=== PATIENT | female | born 1990 | race Caucasian/White ===

== ENCOUNTER 2019-10-10 10:39 | Inpatient (IN) ==
[2019-10-10] MEDS ORDERED: OXYTOCIN 30 UNITS/500 ML BAG IV PRN ×2 (11:17→12:23)
--- NOTE | 2019-10-10 11:17 | History & Physical Report ---
Date of Service October 10, 2019 Assessment & Plan (1) Gestational hypertension: admitted to the L&D floor for induction of labor at 37w2d with Gestational HTN. 1) Induction of Labor - will start pitocin to augment contractions and labor progression - cervical checks and rupture of membranes if necessary during progression of labor - supportive care - NPO 2) Gestational HTN - BP 160/100 in office with repeat 140/82 10 minutes later (10/07) - BP today 132/92 in office, 143/88 on floor - UA to check for protein, ketones - CMP, CBC to check for liver and kidney function, anemia and platlet count - monitor reflexes FEN/GI: lactated ringers with pitocin titration Diet: NPO DVT ppx: none Code status: Full Code Dispo: L&D admit (2) : (3) History of herpes genitalis: (4) Supervision of normal intrauterine in primigravida: History of Present Illness Primary Care Provider: Lisa Arzate MD 37w2d confirmed LMP. Sent here for induction from the office for gestational HTN. Prior to elevated BP at the last few OB appointments, no complications with this . Has been attending OB appointments regularly. Currently vitamin and valtrex prophylaxis for hx of HSV. Last outbreak was in mid 2nd trimester. Contractions: none. Fluid or Blood loss: none Movement: active Labs Blood type: O+ Antibody screen: negative H.0 Hct:36.4 Wbc:10.97 Plt:[id number] Rubella: immune VDRL/RPR: nonreactive Gonorrhea: not detected Chlamydia: not detected GBS: negative Glucose tolerance x2: negative Allergies Allergy/AdvReac Type Severity Reaction Status Date / Time No Known Drug Allergies Allergy none Verified 10/10/19 10:57 Home Medications Home Medications Medication Instructions Recorded Confirmed Type PNV cmb#95-ferrous fumarate-FA 1 tab PO DAILY 10/10/19 10/10/19 History [] valacyclovir [Valtrex] 500 mg PO DAILY 10/10/19 10/10/19 History Patient History Social History (Updated 05/21/19 @ 12:46 by Arlyn Culver) Preferred Language: Libyan Urgent Care Technician Required: No Beliefs That Will Affect Care: None marital status: Current Living Situation: Spouse Other Information That Helps Us Care for You: No Feels Safe at Home: Yes Safety Concerns: Feels Safe At This Time Smoking Status: Never smoker Hx Alcohol Use: No Hx Substance Use: No OB History First ended in spontaneous miscarriage at 6-8 weeks. [employer] History negative pap 03/28/19 Review of Systems no fever, no chills and no fatigue no cough, no dyspnea and no wheezing no chest pain, no edema and no calf pain no abdominal pain, no nausea, no vomiting, no cramping, no constipation and no diarrhea/loose stools no dysuria and no difficulty urinating no back pain Physical Exam Constitutional: well developed and well nourished Respiratory: normal respiratory effort; no respiratory distress, no labored breathing and no cough Auscultation: no diminished lung sounds, no crackles, no rales, no rhonchi and no wheezes Cardiovascular: Rate/Rhythm: regular rate and regular rhythm Extremities: normal capillary refill; no calf tenderness and no pedal edema Gastrointestinal (Abdomen): Inspection/Auscultation: + abdomen distended and normal bowel sounds Percussion/Palpation: abdomen nontender (no tenderness in RUQ or epigastric region) and no guarding Neurologic: Strength 5/5 at BL wrists and ankles Reflexes 1+ at BL patellas and biceps Results & Data Vital Signs (Past 12 Hours) Vital Signs Pulse BP 10/10/19 11:02 78 143/88 H Monitoring External Monitor Baseline HR: 120 BPM Moderate Variability No accelerations No late or early decelerations Category I heart tracing Tocodynamometer No contractions present Supervising Physician Co-Signing Physician Notes Resident Physician Supervision Note: I interviewed and examined the patient. Discussed with Dr. Sexton and agree with findings and plan as documented in the note. Any exceptions or clarifications are listed here: at 37 2/7 weeks who now has a diagnosis of GHTN. cx unfavorable and will need dee and concurrent pit. Check labs. close monitoring of bps but in a mild range. No indication for pitocin. anticipate . Documented By: Melina Montiel MD, FACOG Resident Activity Tracking Resident Involvement: Resident Care Provided Care Provided: Adult [facility] Medicine and OB Delivery (1) Gestational hypertension Trimester: third trimester Qualified Code(s): O13.3 - Gestational [- induced] hypertension without significant proteinuria, third trimester
[2019-10-10 11:39] LABS: Hematocrit (blood only) 36.9 % (37-47); Hemoglobin 12.2 g/dL (12.0-16.0); Mean Corpuscular Hemoglobin 29.6 pg (25-34); Mean Corpuscular Volume 89.6 fL (80-100); Mean Platelet Volume 9.7 fL (7.4-10.4); Platelet Count 285 K/uL (130-400); RDW Standard Deviation 42.7 fL (36.4-46.3); Red Blood Count 4.12 M/uL (4.2-5.4); White Blood Count 11.37 K/uL (4.8-10.8)
[2019-10-10 11:43] LABS: Mean Corpuscular Hgb Conc 33.1 g/dL (32-36)
[2019-10-10 11:58] LABS: Alanine Aminotransferase 19 U/L (12-78); Albumin Level 2.8 gm/dl (3.4-5.0); Aspartate Aminotransferase 17 U/L (15-37); BUN Creatinine Ratio 12.1 (10-20); Bilirubin Direct < 0.1 mg/dl (0-0.2); Blood Urea Nitrogen 6 mg/dl (7-18); Calcium 8.8 mg/dl (8.5-10.1); Carbon Dioxide 22 mmol/L (21-32); Chloride 109 mmol/L (98-107); Creatinine Clr Calc Pharmacy 165.1 ml/min; Est GFR (African American) 148.7; Est GFR (Non-African American) 128.3; Glucose 79 mg/dl (70-99); Sodium 138 mmol/L (136-145)
[2019-10-10 12:00] LABS: Albumin Globulin Ratio 0.7 (0.9-2); Alkaline Phosphatase 120 U/L (45-117); Bilirubin,Total 0.3 mg/dl (0.2-1); Globulin 3.9 gm/dl (2.5-4.0); Total Protein 6.7 gm/dl (6.4-8.2)
--- NOTE | 2019-10-10 13:41 | Communication Note ---
Date of Service: October 10, 2019 Lee bulb placed under direct visualization using a speculum. Tolerated well efm--140s wtih mod varibility, +accels. Start pitocin as well.
[2019-10-10] MEDS: LACTATED RINGER'S 1,000 ML IV PRN ×2 (13:57→22:02)
--- NOTE | 2019-10-10 19:58 | Labor Progress Brief Note ---
Date of Service October 10, 2019 Subjective feeling better since balloon out Assessment & Plan (1) Gestational hypertension: continue pitocin induction. fetus category one. Pressures are ok. Trimester: third trimester Qualified Code(s): O13.3 - Gestational [-induced] hypertension without significant proteinuria, third trimester Physical Exam Constitutional: WD/WN, vitals as above Psychiatric: A+Ox3, euthymic affect Genitourinary: cx--difficult exam, very post, 2-3/80/-2 toco--q 3-4, pit at 7 efm--110-115, accels to 150s, no decels Results & Data Vital Signs (Past 12 Hours) Vital Signs Temp Pulse Resp BP 10/10/19 19:14 58 L 153/74 H 10/10/19 19:02 36.7 C 18 10/10/19 18:11 71 143/84 H 10/10/19 16:56 67 149/88 H 10/10/19 15:56 74 136/84 10/10/19 15:00 36.8 C 16 10/10/19 14:56 76 124/62 10/10/19 14:27 73 144/85 H 10/10/19 13:56 79 141/82 H 10/10/19 11:02 78 143/88 H 10/10/19 10:55 36.8 C 16
--- NOTE | 2019-10-10 23:16 | Labor Progress Brief Note ---
Date of Service October 10, 2019 Subjective noting contractions, rating 2/10 Assessment & Plan (1) Gestational hypertension: continue current management. epidural if requests. fetus category one. Trimester: third trimester Qualified Code(s): O13.3 - Gestational [-induced] hypertension without significant proteinuria, third trim jackie Physical Exam Constitutional: WD/WN, vitals as above Psychiatric: A+Ox3, euthymic affect Genitourinary: cx--3/50/-2 arom--copius clear toco--q2-4min, pit at 13 efm--120 with mod variability, accels to 160s, no decels Results & Data Vital Signs (Past 12 Hours) Vital Signs Temp Pulse Resp BP 10/10/19 23:12 63 138/84 10/10/19 22:13 58 L 129/74 10/10/19 21:11 60 128/64 10/10/19 20:30 18 10/10/19 20:12 59 L 148/82 H 10/10/19 19:14 58 L 153/74 H 10/10/19 19:02 36.7 C 18 10/10/19 18:11 71 143/84 H 10/10/19 16:56 67 149/88 H 10/10/19 15:56 74 136/84 10/10/19 15:00 36.8 C 16 10/10/19 14:56 76 124/62 10/10/19 14:27 73 144/85 H 10/10/19 13:56 79 141/82 H
--- NOTE | 2019-10-11 04:08 | Labor Progress Brief Note ---
Date of Service October 11, 2019 Subjective much more painful Assessment & Plan (1) Gestational hypertension: fetus category one. Pit almost at 20. Explained about iupc and that we might need to run pit and then would not be able to move. She declines pain management at present and is doing well. Continue current management. Trimester: third trimester Qualified Code(s): O13.3 - Gestational [-induced] hypertension without significant proteinuria, third trimester Physical Exam Constitutional: WD/WN, vitals as above Psychiatric: A+Ox3, euthymic affect Genitourinary: cx--3/80/-2/post (difficult to reach again) toco--q2-4min, pit at 19 efm--115 with mod variability, accels to 150s, no decels Results & Data Vital Signs (Past 12 Hours) Vital Signs Temp Pulse Resp BP 10/11/19 03:13 68 157/91 H 10/11/19 03:12 37.1 C 20 10/11/19 01:51 60 139/84 10/11/19 01:02 36.7 C 60 16 139/81 10/11/19 00:09 59 L 139/85 10/10/19 23:12 36.5 C 63 18 138/84 10/10/19 22:13 58 L 129/74 10/10/19 21:11 60 128/64 10/10/19 20:30 18 10/10/19 20:12 59 L 148/82 H 10/10/19 19:14 58 L 153/74 H 10/10/19 19:02 36.7 C 18 10/10/19 18:11 71 143/84 H 10/10/19 16:56 67 149/88 H
[2019-10-11] MEDS: LACTATED RINGER'S 1,000 ML IV PRN ×2 (05:52→10:05)
[2019-10-11] MEDS ORDERED: CITRIC ACID/SODIUM CITRATE 15 ML UDC PO SCH (06:00)
--- NOTE | 2019-10-11 07:28 | Labor Progress Brief Note ---
Date of Service October 11, 2019 Subjective more uncomfortable Assessment & Plan (1) Gestational hypertension: Pressures are ok. Continue current management. Is making change. continue to monitor. Fetus category one. Trimester: third trimester Qualified Code(s): O13.3 - Gestational [-induced] hypertension without significant proteinuria, third trimester Physical Exam Constitutional: WD/WN, vitals as above Psychiatric: A+Ox3, euthymic affect Genitourinary: cx--5-6/80/-2 toco--q2-4min, pit at 20 efm--115 with mod variability, accels to 160s, no decels. Results & Data Vital Signs (Past 12 Hours) Vital Signs Temp Pulse Resp BP 10/11/19 07:01 36.8 C 65 18 137/83 10/11/19 05:55 57 L 144/88 H 10/11/19 05:04 37.1 C 67 18 132/82 10/11/19 04:04 66 142/91 H 10/11/19 03:13 68 157/91 H 10/11/19 03:12 37.1 C 20 10/11/19 01:51 60 139/84 10/11/19 01:02 36.7 C 60 16 139/81 10/11/19 00:09 59 L 139/85 10/10/19 23:12 36.5 C 63 18 138/84 10/10/19 22:13 58 L 129/74 10/10/19 21:11 60 128/64 10/10/19 20:30 18 10/10/19 20:12 59 L 148/82 H
--- NOTE | 2019-10-11 09:17 | Labor Progress Brief Note ---
Date of Service October 11, 2019 Sign over from call at 830am from Dr. Montiel. was 4-5 cm at last check and now 4cm, 90% when I check her. Cervix posterior. Patient very uncomfortable. Offered epidural then IUPC Offered IUPC Discussed lack of progress. Physical Exam Genitourinary: Manual OB Exam: + cervical dilation 4 cm, + cervical effacement 90% and + station -1 Results & Data Vital Signs (Past 12 Hours) Vital Signs Temp Pulse Resp BP 10/11/19 09:06 98.6 F 22 10/11/19 08:47 75 18 120/58 L 10/11/19 08:02 66 144/71 H 10/11/19 07:01 98.2 F 65 18 137/83 10/11/19 05:55 57 L 144/88 H 10/11/19 05:04 98.8 F 67 18 132/82 10/11/19 04:04 66 142/91 H 10/11/19 03:13 68 157/91 H 10/11/19 03:12 98.8 F 20 10/11/19 01:51 60 139/84 10/11/19 01:02 98.1 F 60 16 139/81 10/11/19 00:09 59 L 139/85 10/10/19 23:12 97.7 F 63 18 138/84 10/10/19 22:13 58 L 129/74
[2019-10-11] MEDS ORDERED: fentaNYL citrate 100 MCG/2 ML VIAL ONE (09:20)
[2019-10-11] MEDS ORDERED: ePHEDrine sulfate 50 MG/ML AMP ONE (09:20)
[2019-10-11] MEDS ORDERED: fentaNYL 2MCG/ML ROPIV 1.25MG/ML 100 ML BAG EPI ONE (09:21)
[2019-10-11] MEDS ORDERED: BUPIVACAINE 0.25% 30 ML VIAL ONE (09:21)
[2019-10-11] MEDS ORDERED: ePHEDrine sulfate 50 MG/ML AMP IV PRN ×2 (09:29→13:39)
[2019-10-11] MEDS ORDERED: ONDANSETRON INJ 2 MG/ML 2 ML VIAL IV PRN (09:29)
[2019-10-11] MEDS ORDERED: DiphenhydrAMINE HCL 50 MG/ML VIAL IV PRN ×2 (09:29→13:39)
[2019-10-11] MEDS ORDERED: NALOXONE HCL 0.4 MG/1 ML VIAL/CARP IV PRN ×2 (09:29→13:39)
[2019-10-11] MEDS ORDERED: NALBUPHINE HCL INJ 10 MG/ML AMP IV PRN ×2 (09:29→13:39)
[2019-10-11] MEDS ORDERED: fentaNYL 2MCG/ML ROPIV 1.25MG/ML 100 ML BAG EPI PRN (09:29)
[2019-10-11] MEDS ORDERED: NALOXONE HCL 1 MG in SODIUM CHLORIDE 0.9% 1000ML 1,000 ML IV PRN ×2 (09:29→13:39)
--- NOTE | 2019-10-11 09:35 | Anesthesiology Consultation ---
Date of Service October 11, 2019 Assessment & Plan Chart Review Chart Review: Patient NOT seen in Pre Admission Testing and Acceptable Risk for Labor Epidural Consults Requested none ASA ASA2 Proposed Anesthesia Anesthesia Type: Labor Epidural and CSE Risk / Benefits Reviewed With: PT / POA / Parent / Guardian, Accepts Plan and Informed Consent Obtained History Height/Weight Height: 5 ft 6 in Weight: 78.018 kg Allergies Allergy/AdvReac Type Severity Reaction Status Date / Time No Known Drug Allergies Allergy none Verified 10/10/19 10:57 Medications Home Medications Medication Instructions Recorded Confirmed Last Taken PNV cmb#95-ferrous fumarate-FA 1 tab PO DAILY 10/10/19 10/10/19 10/09/19 21:00 [] valacyclovir [Valtrex] 500 mg PO DAILY 10/10/19 10/10/19 10/09/19 16:00 Active Medications Generic Name Dose Route Start Last Admin Trade Name Freq PRN Reason Stop Dose Admin Lactated Ringer's 1,000 mls @ 125 mls/hr 10/10/19 11:17 10/11/19 09:31 Lr IV 10/12/19 11:16 999 mls/hr .Q8H PRN Infusion L&D Protocol Protocol Oxytocin 30 units in 500 mls @ 20 mls/hr 10/10/19 12:23 10/11/19 07:00 Pitocin IV 10/12/19 12:22 1.2 units/hr .Q24H PRN 20 mls/hr Labor Induction/Augmentation Titration Protocol 1.2 UNITS/HR NPO Date Last Intake of Fluids: 10/11/19 Time Last Intake of Fluids: 08:30 Date Last Intake of Solids: 10/10/19 Time Last Intake of Solids: 12:00 Past Medical History Medical History Gestational hypertension H/O varicella Herpes genitalia (Resolved) last outbreak at approx 24 weeks. History of herpes genitalis (Acute) History of miscarriage (Resolved) 09/2018 Exercise / Class Metabolic Activity II 4-5 Yardwork/Stairs/Walk up hill Past Family History Family History Mother Breast cancer Endometriosis Ovarian cyst Aunt Breast cancer Thyroid disease Grandmother (Maternal) Breast cancer labor Grandfather (Maternal) Diabetes Past Surgical History Surgical History S/P anterior cruciate ligament surgery S/P wisdom tooth extraction Past Anesthesia History No Hx of Anesthesia Complications and No Family Hx of Anesthesia Complications History of PONV No Hx of PONV and No Hx of Motion Sickness Social History Smoking Status: Never smoker Hx Alcohol Use: No Hx Substance Use: No substance use type: does not use Review of Systems no chest pain or sob Physical Exam Vital Signs Last Vital Signs Temp 37.0 C 10/11/19 09:06 Pulse 61 10/11/19 09:28 Resp 22 10/11/19 09:06 BP 120/58 L 10/11/19 08:47 Pulse Ox 96 10/11/19 09:28 ENMT Mouth: no TMJ abnormality Thyromental Distance: > or= 3.5 Finger Breadths Mallampati Class: II Neck normal visual inspection Respiratory normal respiratory effort Auscultation: lungs clear to auscultation bilaterally Cardiovascular Rate/Rhythm: regular rate and regular rhythm Musculoskeletal Spine: normal cervical ROM Neurologic moves all extremities Psychiatric Orientation: alert and oriented x 3 Testing Laboratory Results 10/10/19 11:31 10/10/19 11:31
[2019-10-11] MEDS: PRENATAL VITAMIN 1 TAB PO SCH (10:05)
--- NOTE | 2019-10-11 10:29 | Labor Progress Brief Note ---
Date of Service October 11, 2019 Patient has chosen epidural. Cx still 4cm, 90%, -1. Increased caput palpated. FHR cat 1 IUPC placed. Watch carefully Results & Data Vital Signs (Past 12 Hours) Vital Signs Temp Pulse Resp BP Pulse Ox 10/11/19 10:23 71 136/63 97 10/11/19 10:18 68 97 10/11/19 10:17 71 118/64 10/11/19 10:14 71 18 110/61 10/11/19 10:13 73 97 10/11/19 10:08 73 97 10/11/19 10:07 76 18 110/64 10/11/19 10:03 79 18 107/66 97 10/11/19 10:00 77 18 125/70 10/11/19 09:59 82 18 119/65 10/11/19 09:58 76 97 10/11/19 09:54 81 115/68 10/11/19 09:53 80 98 10/11/19 09:52 67 18 115/70 10/11/19 09:50 75 18 118/76 10/11/19 09:49 64 20 119/75 10/11/19 09:48 68 96 10/11/19 09:47 66 20 135/85 10/11/19 09:44 76 126/77 10/11/19 09:43 73 98 10/11/19 09:42 70 92 10/11/19 09:38 78 96 10/11/19 09:35 74 92 10/11/19 09:33 64 97 10/11/19 09:28 61 96 10/11/19 09:06 98.6 F 22 10/11/19 08:47 75 18 120/58 L 10/11/19 08:02 66 144/71 H 10/11/19 07:01 98.2 F 65 18 137/83 10/11/19 05:55 57 L 144/88 H 10/11/19 05:04 98.8 F 67 18 132/82 10/11/19 04:04 66 142/91 H 10/11/19 03:13 68 157/91 H 10/11/19 03:12 98.8 F 20 10/11/19 01:51 60 139/84 10/11/19 01:02 98.1 F 60 16 139/81 10/11/19 00:09 59 L 139/85 10/10/19 23:12 97.7 F 63 18 138/84
--- NOTE | 2019-10-11 10:43 | Labor Progress Brief Note ---
Date of Service October 11, 2019 Labor more than adequate on IUPC measured contractions. Contractions are 2' apart and 70-75mm in delta, well over the minimum required for adequate labor. Results & Data Vital Signs (Past 12 Hours) Vital Signs Temp Pulse Resp BP Pulse Ox 10/11/19 10:38 64 98 10/11/19 10:37 66 122/71 10/11/19 10:33 66 126/70 97 10/11/19 10:28 67 117/64 96 10/11/19 10:23 71 136/63 97 10/11/19 10:18 68 97 10/11/19 10:17 71 118/64 10/11/19 10:14 71 18 110/61 10/11/19 10:13 73 97 10/11/19 10:08 73 97 10/11/19 10:07 76 18 110/64 10/11/19 10:03 79 18 107/66 97 10/11/19 10:00 77 18 125/70 10/11/19 09:59 82 18 119/65 10/11/19 09:58 76 97 10/11/19 09:54 81 115/68 10/11/19 09:53 80 98 10/11/19 09:52 67 18 115/70 10/11/19 09:50 75 18 118/76 10/11/19 09:49 64 20 119/75 10/11/19 09:48 68 96 10/11/19 09:47 66 20 135/85 10/11/19 09:44 76 126/77 10/11/19 09:43 73 98 10/11/19 09:42 70 92 10/11/19 09:38 78 96 10/11/19 09:35 74 92 10/11/19 09:33 64 97 10/11/19 09:28 61 96 10/11/19 09:06 98.6 F 22 10/11/19 08:47 75 18 120/58 L 10/11/19 08:02 66 144/71 H 10/11/19 07:01 98.2 F 65 18 137/83 10/11/19 05:55 57 L 144/88 H 10/11/19 05:04 98.8 F 67 18 132/82 10/11/19 04:04 66 142/91 H 10/11/19 03:13 68 157/91 H 10/11/19 03:12 98.8 F 20 10/11/19 01:51 60 139/84 10/11/19 01:02 98.1 F 60 16 139/81 10/11/19 00:09 59 L 139/85 10/10/19 23:12 97.7 F 63 18 138/84
--- NOTE | 2019-10-11 12:27 | Obstetrical Progress Note ---
Date of Service Despite excellent contractions with Pitocin and adequate [place] units the patient is unchanged likely since 8 hours ago and at least 6 hours She Is 4 Cm There Is Increased her heart rate is category 1 at this stage I recommended section because her labor is obstructed I did discuss the option of continuing labor we discussed all risks of the procedure including but not limited to the risks of bleeding infection injury to internal organs and the fetus we also discussed increased infection risk with prolonged labor October 11, 2019 Results & Data Vital Signs (Past 12 Hours) Vital Signs Temp Pulse Resp BP Pulse Ox 10/11/19 12:23 67 97 10/11/19 12:21 64 93 10/11/19 12:19 61 125/67 10/11/19 12:18 65 99 10/11/19 12:13 64 98 10/11/19 12:08 62 98 10/11/19 12:03 63 123/56 L 98 10/11/19 12:02 75 94 10/11/19 11:58 59 L 99 10/11/19 11:53 57 L 99 10/11/19 11:48 56 L 141/76 H 99 10/11/19 11:43 59 L 99 10/11/19 11:38 59 L 99 10/11/19 11:35 79 89 L 10/11/19 11:34 67 130/71 10/11/19 11:33 71 98 10/11/19 11:28 57 L 98 10/11/19 11:23 60 97 10/11/19 11:18 66 126/81 97 10/11/19 11:13 65 99 10/11/19 11:08 61 99 10/11/19 11:03 64 121/67 98 10/11/19 10:58 62 98 10/11/19 10:53 98.1 F 64 20 97 10/11/19 10:48 72 95 10/11/19 10:47 72 134/71 10/11/19 10:43 71 127/69 96 10/11/19 10:38 64 98 10/11/19 10:37 66 122/71 10/11/19 10:33 66 126/70 97 10/11/19 10:28 67 117/64 96 10/11/19 10:23 71 136/63 97 10/11/19 10:18 68 97 10/11/19 10:17 71 118/64 12/24/19 10:14 71 18 110/61 10/11/19 10:13 73 97 10/11/19 10:08 73 97 10/11/19 10:07 76 18 110/64 10/11/19 10:03 79 18 107/66 97 10/11/19 10:00 77 18 125/70 10/11/19 09:59 82 18 119/65 10/11/19 09:58 76 97 10/11/19 09:54 81 115/68 10/11/19 09:53 80 98 10/11/19 09:52 67 18 115/70 10/11/19 09:50 75 18 118/76 10/11/19 09:49 64 20 119/75 10/11/19 09:48 68 96 10/11/19 09:47 66 20 135/85 10/11/19 09:44 76 126/77 10/11/19 09:43 73 98 10/11/19 09:42 70 92 10/11/19 09:38 78 96 10/11/19 09:35 74 92 10/11/19 09:33 64 97 10/11/19 09:28 61 96 10/11/19 09:06 98.6 F 22 10/11/19 08:47 75 18 120/58 L 10/11/19 08:02 66 144/71 H 10/11/19 07:01 98.2 F 65 18 137/83 10/11/19 05:55 57 L 144/88 H 10/11/19 05:04 98.8 F 67 18 132/82 10/11/19 04:04 66 142/91 H 10/11/19 03:13 68 157/91 H 10/11/19 03:12 98.8 F 20 10/11/19 01:51 60 139/84 10/11/19 01:02 98.1 F 60 16 139/81 PG Care Time/CCT Total # of Minutes Spent Total Time Spent with Patient: Total time spent is greater than 50% in coordination of care (as documented) at patient's floor/unit and/or counseling patient:
[2019-10-11] MEDS ORDERED: LACTATED RINGER'S 1,000 ML IV SCH ×2 (12:30→16:27)
[2019-10-11] MEDS ORDERED: CITRIC ACID/SODIUM CITRATE 15 ML UDC ONE (12:33)
--- NOTE | 2019-10-11 12:34 | History & Physical Bridge Note ---
Date of Service October 11, 2019 [facility] History & Physical Bridge Note I have examined the patient, reviewed the History & Physical and in the interval since the performance of the History & Physical I have noted the following changes of clinical significance: no changes noted
[2019-10-11] MEDS ORDERED: CEFAZOLIN 2000MG 2,000 MG/15 ML SYR IV SCH (12:45)
[2019-10-11] MEDS ORDERED: LIDOCAINE/EPINEPHRINE 2% 1:200,000 20 ML SDV ONE (13:02)
[2019-10-11] MEDS ORDERED: OXYTOCIN 10 UNITS/ML VIAL ONE (13:02)
--- NOTE | 2019-10-11 13:22 | Anesthesiology Progress Note ---
Date of Service October 11, 2019 Subjective The patient has a functioning epidural. The plan is to use the epidural for the . I spoke to the patient about potentially administering general anesthesia if the epidural was inadequate. The patient was understanding and acceptable with the plan. Physical Exam Vital Signs: Last Vital Signs Temp 98.8 F 10/11/19 12:46 Pulse 88 10/11/19 13:09 Resp 16 10/11/19 12:46 BP 135/70 10/11/19 13:03 Pulse Ox 98 10/11/19 13:09 Results & Data Medications Administered Lactated Ringer's (Lr) 1,000 mls @ 125 mls/hr IV .Q8H PRN; Protocol PRN Reason: L&D Protocol Stop: 10/12/19 11:16 Last Infusion: 10/11/19 13:01 Dose: 999 mls/hr Documented by: [id number] Infusion: 10/11/19 10:20 Dose: 125 mls/hr Documented by: [id number] Admin: 10/11/19 10:05 Dose: 999 mls/hr Documented by: [id number] Infusion: 10/11/19 10:04 Dose: 999 mls/hr Documented by: [id number] Infusion: 10/11/19 09:31 Dose: 999 mls/hr Documented by: [id number] Infusion: 10/11/19 07:00 Dose: 125 mls/hr Documented by: [id number] Admin: 10/11/19 05:52 Dose: 125 mls/hr Documented by: [id number] Infusion: 10/11/19 05:52 Dose: 125 mls/hr Documented by: [id number] Admin: 10/10/19 22:02 Dose: 125 mls/hr Documented by: [id number] Infusion: 10/10/19 21:57 Dose: 125 mls/hr Documented by: [id number] Infusion: 10/10/19 19:30 Dose: 125 mls/hr Documented by: [id number] Infusion: 10/10/19 19:01 Dose: 125 mls/hr Documented by: [id number] Admin: 10/10/19 13:57 Dose: 125 mls/hr Documented by: [id number] Oxytocin (Pitocin) 30 units in 500 mls @ 0 mls/hr IV .Q0M PRN; Protocol PRN Reason: Labor Induction/Augmentation Stop: 10/12/19 12:22 Last Titration: 10/11/19 12:21 Dose: 0 units/hr, 0 mls/hr Documented by: [id number] Titration: 10/11/19 07:00 Dose: 1.2 units/hr, 20 mls/hr Documented by: [id number] Titration: 10/11/19 04:15 Dose: 1.2 units/hr, 20 mls/hr Documented by: [id number] Titration: 10/11/19 03:30 Dose: 1.14 units/hr, 19 mls/hr Documented by: [id number] Titration: 10/11/19 01:51 Dose: 1.08 units/hr, 18 mls/hr Documented by: [id number] Titration: 10/11/19 01:21 Dose: 1.02 units/hr, 17 mls/hr Documented by: [id number] Titration: 10/11/19 00:33 Dose: 0.96 units/hr, 16 mls/hr Documented by: [id number] Titration: 10/11/19 00:00 Dose: 0.9 units/hr, 15 mls/hr Documented by: [id number] Titration: 10/10/19 23:30 Dose: 0.84 units/hr, 14 mls/hr Documented by: [id number] Titration: 10/10/19 22:30 Dose: 0.78 units/hr, 13 mls/hr Documented by: [id number] Titration: 10/10/19 22:00 Dose: 0.72 units/hr, 12 mls/hr Documented by: [id number] Titration: 10/10/19 21:30 Dose: 0.66 units/hr, 11 mls/hr Documented by: [id number] Titration: 10/10/19 21:00 Dose: 0.6 units/hr, 10 mls/hr Documented by: [id number] Titration: 10/10/19 20:30 Dose: 0.54 units/hr, 9 mls/hr Documented by: [id number] Titration: 10/10/19 20:00 Dose: 0.48 units/hr, 8 mls/hr Documented by: [id number] Titration: 10/10/19 19:30 Dose: 0.42 units/hr, 7 mls/hr Documented by: [id number] Titration: 10/10/19 19:02 Dose: 0.36 units/hr, 6 mls/hr Documented by: [id number] Titration: 10/10/19 18:54 Dose: 0.36 units/hr, 6 mls/hr Documented by: [id number] Titration: 10/10/19 16:10 Dose: 0.3 units/hr, 5 mls/hr Documented by: [id number] Titration: 10/10/19 15:30 Dose: 0.24 units/hr, 4 mls/hr Documented by: [id number] Titration: 10/10/19 15:00 Dose: 0.18 units/hr, 3 mls/hr Documented by: [id number] Titration: 10/10/19 14:30 Dose: 0.12 units/hr, 2 mls/hr Documented by: [id number] Admin: 10/10/19 13:57 Dose: 0.06 units/hr, 1 mls/hr Documented by: [id number] Cosigned by: [id number] Prenat Multivit/[place]/Iron/Folic Ac ( Vitamin) 1 tab PO DAILY BEATRIS Stop: 11/10/19 08:59 Last Admin: 10/11/19 10:05 Dose: Not Given Documented by: [id number]
[2019-10-11] MEDS ORDERED: MoRPHine SULFATE PF 1 MG/ML 10 ML AMP/VIAL ONE (13:34)
[2019-10-11] MEDS ORDERED: NALOXONE HCL 0.08 MG in SYRINGE 1.8 ML IV PRN (13:39)
[2019-10-11] MEDS ORDERED: LACTATED RINGER'S 500 ML IV PRN (13:39)
[2019-10-11] MEDS ORDERED: MoRPHine SULFATE PF 1 MG/ML 10 ML AMP/VIAL INT SPINAL ONE (13:39)
[2019-10-11] MEDS ORDERED: KETOROLAC 30 MG/ML VIAL IV PRN (13:39)
[2019-10-11] MEDS ORDERED: MEPERIDINE HCL 25 MG/ML CARP IV PRN (13:39)
[2019-10-11] MEDS ORDERED: DC INTRASPINAL MORPHINE SCH (13:45)
[2019-10-11] MEDS ORDERED: NO NARCOTICS OR SEDATIVES SCH (13:45)
[2019-10-11] MEDS ORDERED: SODIUM CHLORIDE 0.9% 1000ML 1,000 ML IV SCH (13:45)
[2019-10-11] MEDS ORDERED: DEXAMETHASONE SOD INJ 4 MG/ML VIAL ONE (13:47)
[2019-10-11] MEDS ORDERED: ONDANSETRON INJ 2 MG/ML 2 ML VIAL ONE (13:47)
[2019-10-11] MEDS ORDERED: PHENYLEPHRINE 100MCG/ML 5ML SYR ONE (13:47)
[2019-10-11 14:04] LABS: Base Excess Cord Arterial Bld -1.5 mEq/L (-9-1.8); CO2 Cord Arterial Blood 48 mmHg (39.1-73.5); HCO3 Cord Arterial Blood 25 mmol/L (19.7-28.5); PO2 Cord Arterial Blood 18.3 % (4.1-31.7); pH Cord Arterial Blood 7.33 (7.1-7.38)
--- NOTE | 2019-10-11 14:05 | Anesthesia Procedure Note ---
Date of Service October 11, 2019 Anesthesia Post Epidural Note Vital Signs Vital Signs: Temp Pulse Resp BP Pulse Ox 98.8 F 88 20 135/70 98 10/11/19 12:46 10/11/19 13:09 10/11/19 13:03 10/11/19 13:03 10/11/19 13:09 Notes Mental Status: alert / awake / arousable and participated in evaluation Nausea / Vomiting: adequately controlled Pain: adequately controlled Airway Patency, RR, SpO2: stable & adequate BP & HR: stable & adequate Hydration State: stable & adequate Neuraxial Anesthesia: was administered and sensory block is resolving Anesthetic Complications: no major complications apparent and Pt Satisfied with anesthetic care Epidural: Removed without complications and With tip intact
--- NOTE | 2019-10-11 14:05 | Operative Report ---
PG Post Operative Report Pre & Post Diagnosis Operation Date: 10/11/19 13:15 Pre-Op Diagnosis: Failure to progress;Gestational Hypertension Post-Op Diagnosis: Same; delivery of a live female child at 1332 I identified the patient and participated in the time-out.: Yes Procedure Operation Date: 10/11/19 13:15 Actual Procedures p Section in LD - Ubaldo Moss MD, FACOG Surgeon Ubaldo Moss MD, FACOG Scout Leaser none Estimated Blood Loss 500 Findings Consistent with Post-Op Diagnosis Specimens cord blood, gases Description of Procedure Regional anesthetic was given by anesthesia patient had a Lee catheter inserted by nursing patient was prepped and draped in supine position with a leftward tilt preoperative antibiotics were given timeout performed Pickups with teeth were used to test the skin site and it was found adequate for incision scalpel used to make a Pfannenstiel incision cutting down through subcutaneous fat through the fascia fascia was then dissected laterally with the curved Sykes's fascia was released superiorly and inferiorly from the rectus muscles with the curved Sykes scissors, rectus muscle split peritoneal cavity entered in a superior location. Opening enlarged to allow exposure bladder retractor placed Metzenbaums used to dissect away the bladder flap low segment transverse incision made on the uterus with scalpel entry was done bluntly with the frame gate mortiser operator's finger hysterotomy incision extended with the frame gate mortiser operator's finger in the usual fashion baby was delivered then by flexion of the head and pressure from the hardware sales assistant on the abdomen mouth and then nares were suctioned baby was then delivered fully without difficulty without excessive force live vigorous i nfant cord clamped and cut cord gases obtained cord blood obtained placenta removed manually within ensured all placenta removed with a moist lap sponge uterus exteriorized IV Pitocin had been started by anesthesia and uterine tone improved. The uterus was closed in 2 layers first layer and 0 Monocryl running locked second layer 0 Monocryl nonlocked after generous irrigation and suction of the cul-de-sac and bladder flap regions hemostasis was excellent uterus was placed back in the peritoneal cavity and hemostasis was excellent rectus muscles were inspected and found to be dry fascia closed with 0 Vicryl subcutaneous fat closed with 3-0 Vicryl prior to this subcutaneous fat was irrigated skin closed with 4-0 subcuticular Monocryl incision Steri-Stripped urine was clear at the end of the procedure I attest to the content of the Intraoperative Record and any orders documented therein. Any exceptions are noted below.
--- NOTE | 2019-10-11 14:05 | Post Operative Brief Note ---
PG Immediate Post Op with CF Date of Surgery October 11, 2019 Pre & Post Diagnosis Operation Date: 10/11/19 13:15 Pre-Op Diagnosis: Failure to progress;Gestational Hypertension Post-Op Diagnosis: Same; delivery of a live female child at 1332 I identified the patient and participated in the time-out.: Yes Procedure Operation Date: 10/11/19 13:15 Actual Procedures p Section in LD - Ubaldo Moss MD, FACOG Surgeon Ubaldo Moss MD, FACOG Chief Crna none Estimated Blood Loss 500 Findings Consistent with Post-Op Diagnosis Specimens Specimen Description: A.placenta-hold B.cord blood C.arterial and venous gases Drains Lee Catheter
[2019-10-11 14:08] LABS: Base Excess Cord Venous Blood -1.6 mEq/L (-7.7-1.9); Cord Venous Blood HCO3 23 mmol/L (18.4-26.8); Cord Venous Blood PCO2 39 mmHg (30.4-57.2); Cord Venous Blood PO2 27 mmHg (14.1-43.3); Cord Venous Blood pH 7.39 (7.20-7.44); O2 Saturation Cord Venous Bld 64.4 % (<68); Oxygen Sat Cord Arterial Blood < 60.0 % (<60)
--- NOTE | 2019-10-11 14:27 | Anesthesiology Progress Note ---
Date of Service October 11, 2019 Anesthesia Post Procedure Vital Signs Vital Signs: Temp Pulse Resp BP Pulse Ox 10/11/19 14:26 70 114/56 L 10/11/19 14:24 75 97 10/11/19 14:19 83 97 10/11/19 14:15 77 111/69 10/11/19 14:14 84 97 10/11/19 14:11 85 94 10/11/19 14:09 83 98 10/11/19 14:06 84 107/59 L 10/11/19 13:09 88 98 10/11/19 13:04 64 100 10/11/19 13:03 74 20 135/70 10/11/19 12:59 67 99 10/11/19 12:54 67 100 10/11/19 12:49 63 100 10/11/19 12:48 70 121/64 10/11/19 12:46 98.8 F 16 10/11/19 12:44 74 100 10/11/19 12:39 62 100 10/11/19 12:34 62 100 10/11/19 12:33 64 20 127/63 10/11/19 12:29 67 99 10/11/19 12:23 67 97 10/11/19 12:21 64 93 10/11/19 12:19 61 125/67 10/11/19 12:18 65 99 10/11/19 12:13 64 98 10/11/19 12:08 62 98 10/11/19 12:03 63 20 123/56 L 98 10/11/19 12:02 75 94 10/11/19 11:58 59 L 99 10/11/19 11:53 57 L 99 10/11/19 11:48 56 L 141/76 H 99 10/11/19 11:43 59 L 99 10/11/19 11:38 59 L 99 10/11/19 11:35 79 89 L 10/11/19 11:34 67 130/71 10/11/19 11:33 71 98 10/11/19 11:28 57 L 98 10/11/19 11:23 60 97 10/11/19 11:18 66 20 126/81 97 10/11/19 11:13 65 99 10/11/19 11:08 61 99 10/11/19 11:03 64 121/67 98 10/11/19 10:58 62 98 10/11/19 10:53 98.1 F 64 20 97 10/11/19 10:48 72 95 10/11/19 10:47 72 134/71 10/11/19 10:43 71 127/69 96 10/11/19 10:38 64 98 10/11/19 10:37 66 122/71 10/11/19 10:33 66 126/70 97 10/11/19 10:28 67 117/64 96 10/11/19 10:23 71 136/63 97 10/11/19 10:18 68 97 10/11/19 10:17 71 118/64 10/11/19 10:14 71 18 110/61 10/11/19 10:13 73 97 10/11/19 10:08 73 97 10/11/19 10:07 76 18 110/64 10/11/19 10:03 79 18 107/66 97 10/11/19 10:00 77 18 125/70 10/11/19 09:59 82 18 119/65 10/11/19 09:58 76 97 10/11/19 09:54 81 115/68 10/11/19 09:53 80 98 10/11/19 09:52 67 18 115/70 10/11/19 09:50 75 18 118/76 10/11/19 09:49 64 20 119/75 10/11/19 09:48 68 96 10/11/19 09:47 66 20 135/85 10/11/19 09:44 76 126/77 10/11/19 09:43 73 98 10/11/19 09:42 70 92 10/11/19 09:38 78 96 10/11/19 09:35 74 92 10/11/19 09:33 64 97 10/11/19 09:28 61 96 10/11/19 09:06 98.6 F 22 10/11/19 08:47 75 18 120/58 L 10/11/19 08:02 66 144/71 H 10/11/19 07:01 98.2 F 65 18 137/83 10/11/19 05:55 57 L 144/88 H 10/11/19 05:04 98.8 F 67 18 132/82 10/11/19 04:04 66 142/91 H 10/11/19 03:13 68 157/91 H 10/11/19 03:12 98.8 F 20 10/11/19 01:51 60 139/84 10/11/19 01:02 98.1 F 60 16 139/81 10/11/19 00:09 59 L 139/85 10/10/19 23:12 97.7 F 63 18 138/84 10/10/19 22:13 58 L 129/74 10/10/19 21:11 60 128/64 10/10/19 20:30 18 10/10/19 20:12 59 L 148/82 H 10/10/19 19:14 58 L 153/74 H 10/10/19 19:02 98.1 F 18 10/10/19 18:11 71 143/84 H 10/10/19 16:56 67 149/88 H 10/10/19 15:56 74 136/84 10/10/19 15:00 98.2 F 16 10/10/19 14:56 76 124/62 Transfer of Care Handoff Completed per policy Notes Mental Status: alert / awake / arousable and participated in evaluation Nausea / Vomiting: adequately controlled Pain: adequately controlled Airway Patency, RR, SpO2: stable & adequate BP & HR: stable & adequate Hydration State: stable & adequate Neuraxial Anesthesia: was administered and sensory block is resolving Anesthetic Complications: no major complications apparent and Pt Satisfied with anesthetic care
[2019-10-11] MEDS ORDERED: DIPHTHERIA/TETANUS/PERTUSSIS 0.5 ML SYR/VIAL IM ONE (16:27)
[2019-10-11] MEDS ORDERED: SUPERCREAM 0.870% 15 GM JAR EXT PRN (16:27)
[2019-10-11] MEDS ORDERED: SENNA 8.6 MG TAB PO PRN (16:27)
[2019-10-11] MEDS ORDERED: MAGNESIUM HYDROXIDE SUSP 30 ML UDC PO PRN (16:27)
[2019-10-11] MEDS ORDERED: HYDROCORTISONE ACETATE 25 MG SUPP PR PRN (16:27)
[2019-10-11] MEDS ORDERED: BENZOCAINE 20% AER SPR 82.5 GM CAN EXT PRN (16:27)
[2019-10-11] MEDS: OXYTOCIN 20 UNITS in LACTATED RINGER'S 1,000 ML IV SCH (16:54)
[2019-10-11] MEDS: SIMETHICONE 80 MG CHEW PO SCH ×2 (16:54→21:28)
[2019-10-11] MEDS: DOCUSATE SODIUM 100 MG CAP PO SCH (21:28)
[2019-10-12] MEDS: OXYTOCIN 20 UNITS in LACTATED RINGER'S 1,000 ML IV SCH (01:06)
[2019-10-12 06:09] LABS: Basophils # (auto) 0.01 K/uL (0-0.2); Basophils % (auto) 0.1 %; Eosinophils # (auto) 0.01 K/uL (0-0.5); Eosinophils % (auto) 0.1 %; Hemoglobin 10.2 g/dL (12.0-16.0); Immature Granulocytes # (auto) 0.13 K/uL (0.00-0.02); Immature Granulocytes % (auto) 0.8 %; Lymphocytes # (auto) 1.77 K/uL (1.2-3.4); Mean Corpuscular Hemoglobin 29.3 pg (25-34); Mean Corpuscular Hgb Conc 32.9 g/dL (32-36); Mean Corpuscular Volume 89.1 fL (80-100); Mean Platelet Volume 9.6 fL (7.4-10.4); Monocytes # (auto) 1.48 K/uL (0.11-0.59); Monocytes % (auto) 9.2 %; Neutrophils % (auto) 78.8 %; Platelet Count 209 K/uL (130-400); RDW Standard Deviation 41.4 fL (36.4-46.3); Red Blood Count 3.48 M/uL (4.2-5.4)
--- NOTE | 2019-10-12 07:30 | Obstetrical Progress Note ---
Date of Service October 12, 2019 POD # 1 Doing well. Minimal bleeding No ext pain Ambulating well Assessment & Plan (1) delivery delivered: POD#1 Cont current care Physical Exam Constitutional WD/WN, vitals as above Respiratory normal respiratory effort Cardiovascular Rate/Rhythm: regular rate Gastrointestinal (Abdomen) incision cleran dry intact Ext neg Results & Data Vital Signs (Past 12 Hours) Vital Signs Temp Pulse Resp BP Pulse Ox 10/12/19 06:32 18 96 10/12/19 05:30 16 97 10/12/19 04:30 98.4 F 65 18 136/74 97 10/12/19 03:30 16 98 10/12/19 02:00 16 98 10/12/19 01:00 18 97 10/12/19 00:15 98.6 F 62 16 133/77 95 10/11/19 22:44 98.8 F 57 L 18 122/73 96 10/11/19 20:36 18 98
[2019-10-12] MEDS ORDERED: ONDANSETRON INJ 2 MG/ML 2 ML VIAL IV PRN (07:39)
[2019-10-12] MEDS ORDERED: KETOROLAC 30 MG/ML VIAL IV PRN (07:39)
[2019-10-12] MEDS ORDERED: PROMETHAZINE HCL 25 MG in SODIUM CHLORIDE 0.9% 50 ML IV PRN (07:39)
[2019-10-12] MEDS ORDERED: DiphenhydrAMINE HCL 50 MG/ML VIAL IV PRN (07:39)
[2019-10-12] MEDS ORDERED: MEPERIDINE HCL 50 MG/ML CARP IV PRN (07:39)
[2019-10-12] MEDS ORDERED: PRENATAL VITAMIN 1 TAB PO SCH (08:00)
[2019-10-12] MEDS: DOCUSATE SODIUM 100 MG CAP PO SCH ×2 (08:35→21:10)
[2019-10-12] MEDS: SIMETHICONE 80 MG CHEW PO SCH ×4 (08:35→21:10)
[2019-10-12] MEDS: IBUPROFEN 600 MG TAB PO PRN (14:49)
[2019-10-12] MEDS: OXYCODONE/ACETAMINOPHEN 5mg/325mg TAB PO PRN (14:56)
[2019-10-12] MEDS ORDERED: bisacodyL 5 MG TABEC PO SCH (20:00)
[2019-10-13] MEDS: OXYCODONE/ACETAMINOPHEN 5mg/325mg TAB PO PRN ×2 (02:16→08:37)
[2019-10-13] MEDS: IBUPROFEN 600 MG TAB PO PRN ×2 (02:17→06:09)
[2019-10-13 06:18] LABS: Hemoglobin 10.5 g/dL (12.0-16.0)
--- NOTE | 2019-10-13 06:59 | Obstetrical Progress Note ---
Date of Service October 13, 2019 Assessment & Plan (1) Gestational hypertension: admitted to the L&D floor for induction of labor at 37w2d with Gestational HTN. 1) C/S for failure to progress, POD2 - recovering well, tolerating diet, ambulating appropriately - follow up in office in 6 weeks; discharge today 2) Gestational HTN - BP WNL; 137/80 this morning - no complaints of blurring/change in vision, headaches, lightheadedness (2) : (3) History of herpes genitalis: (4) Supervision of normal intrauterine in primigravida: Supervising Physician Co-Signing Physician Notes Resident Physician Supervision Note: I was present with Dr. Sexton during the history and exam. I discussed the case with the resident and agree with the findings and plan as documented in the note. Any exceptions or clarifications are listed here: POD#2 doing well. Discharge today. Reviewed instructions. Patient going to [facility] to be with baby. Documented By: Araseli Francois, DO Subjective Eager to leave and see baby in [place] this AM. No complaints. Breast pumping in room. Review of Systems Constitutional: no fever and no chills Respiratory: no cough and no dyspnea Cardiovascular: no chest pain, no syncope, no edema and no calf pain Gastrointestinal: no abdominal pain, no nausea, no vomiting, no cramping, no constipation and no diarrhea/loose stools Genitourinary: no dysuria and no difficulty urinating Neurologic: no headache(s) Physical Exam Constitutional: well developed and well nourished Respiratory: normal respiratory effort; no respiratory distress, no labored breathing and no cough Auscultation: no crackles, no rales, no rhonchi and no wheezes Cardiovascular: Rate/Rhythm: regular rate and regular rhythm Heart Sounds: no gallop, no murmur and no cardiac rub Extremities: no pedal edema Gastrointestinal (Abdomen): Inspection/Auscultation: normal bowel sounds; abdomen not distended Percussion/Palpation: abdomen soft; abdomen nontender and no guarding Skin: C/S incision appears to be healing well. Intact, no fluid or bloody leakage. Mildly tender to palpation around scar. Genitourinary: Uterus firm, palpable at umbilicus, some tenderness to palpation. Results & Data Vital Signs (Past 12 Hours) Vital Signs Temp Pulse Resp BP Pulse Ox 10/12/19 23:32 36.7 C 73 18 137/80 97 10/12/19 21:00 84 136/86 Resident Activity Tracking Resident Involvement: Resident Care Provided Care Provided: Adult Hospital Medicine and OB Delivery (1) Gestational hypertension Trimester: third trimester Qualified Code(s): O13.3 - Gestational [- induced] hypertension without significant proteinuria, third trimester
[2019-10-13] MEDS: DOCUSATE SODIUM 100 MG CAP PO SCH (08:37)
[2019-10-13] MEDS: PRENATAL VITAMIN 1 TAB PO SCH (08:37)
[2019-10-13] MEDS: SIMETHICONE 80 MG CHEW PO SCH (08:38)
[2019-10-13] MEDS ORDERED: bisacodyL 10 MG SUPP PR PRN (14:02)
--- NOTE | 2019-10-17 07:22 | Discharge Summary ---
Date of Service October 17, 2019 Admission HPI Per Admitting Provider 37w2d confirmed LMP. Sent here for induction from the office for gestational HTN. Prior to elevated BP at the last few OB appointments, no complications with this . Has been attending OB appointments regularly. Currently vitamin and valtrex prophylaxis for hx of HSV. Last outbreak was in mid 2nd trimester. Contractions: none. Fluid or Blood loss: none Movement: active Labs Blood type: O+ Antibody screen: negative H.0 Hct:36.4 Wbc:10.97 Plt:2272 Rubella: immune VDRL/RPR: nonreactive Gonorrhea: not detected Chlamydia: not detected GBS: negative Glucose tolerance x2: negative Admission Exam (Per Admitting) Constitutional WD/WN, vitals as above Respiratory normal respiratory effort Cardiovascular Rate/Rhythm: regular rate Gastrointestinal (Abdomen) normal bowel sounds, soft, nontender, no hepatosplenomegaly incision clean dry and intact Discharge Data Consultations 10/10/19 11:17 Consult Anesthesiology Stat Procedures Performed Operation Date: 10/11/19 13:15 Actual Procedures p Section in LD - Netta. [facility]aleb Moss MD[facility] (1) delivery delivered: Patient assessed by team and met discharge criteria.
== END 2019-10-13 08:52 | disposition home or self-care (01) | DRG 787 ==
LOC: 4S1 10:39 → 4S2 10-11 16:35

== ENCOUNTER 2024-01-04 07:30 | Inpatient (IN) ==
--- NOTE | 2023-12-21 15:38 | Anesthesiology Consultation ---
Date of Service December 21, 2023 Assessment & Plan (1) Encounter for pre-operative examination: Infectious disease screening: Per assessment on 12/21/23: No known infectious disease contacts or current infectious disease symptoms. No noted recent Covid positive test result. Chart Review Chart Review: order entry initiated History Surgery Operation Date: 01/04/24 09:30 Proposed Procedures p Section in LD (Delivery of Baby through Abdominal Inision ) - Bret Yin MD Height/Weight Height: 5 ft 5.5 in Weight: 71.668 kg Allergies Allergy/AdvReac Type Severity Reaction Status Date / Time No Known Drug Allergies Allergy none Verified 12/21/23 15:09 Medications Home Medications Medication Instructions Recorded Confirmed Last Taken vit no.95-ferrous 1 tab PO QPM 10/10/19 12/21/23 10/09/19 21:00 fumarate 28 mg-folic acid 800 mcg tablet () valacyclovir 500 mg tablet 500 mg PO BID PRN HSV #30 tabs 12/12/19 12/21/23 Unknown (Valtrex) blood-glucose sensor (FreeStyle #2 ea 11/06/23 12/14/23 Unknown Tyrese 3 Sensor device) Dha Supplement 1 dose PO QPM 12/21/23 12/21/23 Unknown cholecalciferol (vitamin D3) 25 25 mcg PO QPM 12/21/23 12/21/23 Unknown mcg (1,000 unit) capsule (Vitamin D3) choline 1 cap PO QPM 12/21/23 12/21/23 Unknown valacyclovir 1 gram tablet 1,000 mg PO HS 12/21/23 12/21/23 Unknown Past Medical History Medical History (Updated 12/21/23 @ 15:37 by Megha Lock) Anxiety and depression hx Cardiac murmur hx as child Gestational diabetes mellitus (GDM) Gestational hypertension H/O varicella Herpes genitalia last outbreak at approximately 24 weeks History of miscarriage - 09/2018 HSV (herpes simplex virus) anogenital infection Labial cyst Palpitations Pelvic pain Past Family History Family History Mother Ovarian cyst Breast cancer Endometriosis PONV (postoperative nausea and vomiting) Aunt Breast cancer Thyroid disease Grandmother (Maternal) labor Breast cancer Grandfather (Maternal) Diabetes Past Surgical History Surgical History (Updated 12/21/23 @ 15:37 by Megha Lock) H/O breast biopsy 10/2022, "benign" Postoperative nausea S/P anterior cruciate ligament surgery Left S/P section 09/2019, [facility] S/P wisdom tooth extraction Social History Smoking Status: Never smoker Do You Dip or Chew Tobacco: No Hx Alcohol Use: No Hx Substance Use: No substance use type: does not use
[2024-01-04] MEDS ORDERED: LIDOCAINE 1% LOCAL 20 ML VIAL INFIL PRN (07:50)
[2024-01-04] MEDS ORDERED: OXYTOCIN 30 UNITS/NSS 30 UNITS/500 ML BAG IV PRN (07:50)
[2024-01-04 08:46] LABS: Hematocrit (blood only) 35.6 % (37.0-47.0); Hemoglobin 11.9 g/dl (12.0-16.0); Mean Corpuscular Hemoglobin 29.1 pg (25.0-34.0); Mean Corpuscular Hgb Conc 33.4 g/dL (32.0-36.0); Mean Platelet Volume 9.6 fL (9.4-12.4); Platelet Count 252 K/uL (130-400); RDW Coefficient of Variation 14.1 % (11.5-14.5); RDW Standard Deviation 44.2 fL (36.4-46.3); Red Blood Count 4.09 M/uL (4.20-5.40); White Blood Count 11.69 K/ul (4.8-10.8)
[2024-01-04] MEDS ORDERED: LACTATED RINGER'S 1,000 ML IV SCH ×2 (09:00→15:54)
[2024-01-04] MEDS: LACTATED RINGER'S 1,000 ML IV PRN (09:12)
--- NOTE | 2024-01-04 09:57 | Anesthesiology Consultation ---
Date of Service January 04, 2024 Assessment & Plan Chart Review Chart Review: Patient NOT seen in Pre Admission Testing and Acceptable Risk for Labor Epidural Consults Requested none ASA ASA2 Proposed Anesthesia Anesthesia Type: Spinal Risk / Benefits Reviewed With: PT / POA / Parent / Guardian, Accepts Plan and Informed Consent Obtained Additional Comments: F with hx of gDM presents for , found to have HSV, now for c/s. NPO time at 3 PM today. Will plan spinal. ASA 2. History Surgery Operation Date: 01/04/24 07:30 Proposed Procedures p Section in LD (Delivery of Baby through Abdominal Inision ) - Bret Yin MD Height/Weight Height: 5 ft 5.5 in Weight: 73.301 kg Allergies Allergy/AdvReac Type Severity Reaction Status Date / Time No Known Drug Allergies Allergy none Verified 01/01/24 13:44 Medications Home Medications Medication Instructions Recorded Confirmed Last Taken blood-glucose sensor (FreeStyle #2 ea 11/06/23 01/01/24 Unknown Tyrese 3 Sensor device) Dha Supplement 1 dose PO QPM 12/21/23 01/01/24 Unknown cholecalciferol (vitamin D3) 25 25 mcg PO QPM 12/21/23 01/01/24 Unknown mcg (1,000 unit) capsule (Vitamin D3) vits no.124-ferrous fum 1 tab PO DAILY 01/04/24 01/04/24 Unknown 27 mg iron-folic acid 800 mcg tablet ( Vitamin) valacyclovir 500 mg tablet 1,000 mg PO BID PRN HSV 01/04/24 01/04/24 Unknown (Valtrex) Active Medications Generic Name Dose Route Start Last Admin Trade Name Freq PRN Reason Stop Dose Admin Lactated Ringer's 1,000 mls @ 125 mls/hr 01/04/24 07:50 01/04/24 09:12 Lr IV 01/06/24 07:49 125 mls/hr .Q8H PRN Administration L&D Protocol Protocol NPO Date Last Intake of Fluids: 01/04/24 Time Last Intake of Fluids: 07:00 Date Last Intake of Solids: 01/04/24 Time Last Intake of Solids: 07:00 Past Medical History Medical History Anxiety and depression hx Gestational diabetes mellitus (GDM) Cardiac murmur hx as child Pelvic pain Labial cyst Palpitations HSV (herpes simplex virus) anogenital infection Gestational hypertension Herpes genitalia last outbreak at approximately 14 weeks H/O varicella History of miscarriage 09/2018 Exercise / Class Metabolic Activity 1 > 8 Run/Swim/Ski/Tennis Past Family History Family History Mother Ovarian cyst Breast cancer Endometriosis PONV (postoperative nausea and vomiting) Aunt Breast cancer Thyroid disease Grandmother (Maternal) labor Breast cancer Grandfather (Maternal) Diabetes Past Surgical History Surgical History Postoperative nausea H/O breast biopsy 10/2022, "benign" S/P section 09/2019, [facility] S/P wisdom tooth extraction S/P anterior cruciate ligament surgery Left Past Anesthesia History No Hx of Anesthesia Complications and No Family Hx of Anesthesia Complications History of PONV No Hx of PONV and No Hx of Motion Sickness Social History Smoking Status: Never smoker Do You Dip or Chew Tobacco: No Hx Alcohol Use: No Hx Substance Use: No substance use type: does not use Review of Systems ROS Unobtainable: All systems reviewed & are unremarkable except as noted in HPI & below Physical Exam Vital Signs Last Vital Signs Temp 36.6 C 01/04/24 07:57 Pulse 73 01/04/24 08:01 Resp 18 01/04/24 07:57 BP 128/74 01/04/24 08:01 Constitutional no acute distress ENMT Mouth: no TMJ abnormality Thyromental Distance: > or= 3.5 Finger Breadths Mallampati Class: II Neck normal visual inspection and trachea midline; neck extension not limited Respiratory normal respiratory effort Auscultation: lungs clear to auscultation bilaterally Cardiovascular Rate/Rhythm: regular rate and regular rhythm Heart Sounds: no murmur Musculoskeletal Spine: normal cervical ROM Extremities: full ROM of extremities Neurologic moves all extremities Psychiatric Orientation: alert and oriented x 3 Testing Laboratory Results 01/04/24 08:25 Blood Type O Positive 01/04/24 08:25 Antibody Screen NEGATIVE 01/04/24 08:25
[2024-01-04] MEDS: CITRIC ACID/SODIUM CITRATE 15 ML UDC ONE (14:13)
[2024-01-04] MEDS ORDERED: Nursing to Pharmacy Communication SCH (14:15)
[2024-01-04] MEDS: ceFAZolin 2000MG 2,000 MG/15 ML SYR IV SCH (14:51)
--- NOTE | 2024-01-04 14:58 | History & Physical Report ---
Date of Service January 04, 2024 Assessment & Plan (1) Gestational diabetes mellitus (GDM) affecting , antepartum: Plan: Mariah is a 33-year-old G4, P2 currently at 40 weeks 5 days gestational age presents initially for trial of labor after section. Patient reports questionable prodromal HSV symptoms. Recommended proceeding with a repeat C- section which patient was agreeable to. Consent forms reviewed and signed. NST reactive. Vitals within normal limits. (2) Encounter for supervision of normal in multigravida: (3) History of delivery, currently : Admission and Anticipated Discharge Date Admission Date: January 04, 2024 History of Present Illness Primary Care Provider: NO PCP Mariah is a 33-year-old G4, P2 currently at 40 weeks and 5 days gestational age. Patient initially presented for induction of labor. However she reports feeling vulvar tingling concerning for an HSV prodromal symptom. Discussed recommendation for a repeat due to concern of HSV outbreak. Patient was agreeable to proceeding with repeat . Consent forms reviewed and signed. Allergies Allergy/AdvReac Type Severity Reaction Status Date / Time No Known Drug Allergies Allergy none Verified 01/01/24 13:44 Home Medications Medication Instructions Recorded Confirmed Type blood-glucose sensor (FreeStyle #2 ea 11/06/23 01/01/24 Rx Tyrese 3 Sensor device) Dha Supplement 1 dose PO QPM 12/21/23 01/01/24 History cholecalciferol (vitamin D3) 25 25 mcg PO QPM 12/21/23 01/01/24 History mcg (1,000 unit) capsule (Vitamin D3) vits no.124-ferrous fum 1 tab PO DAILY 01/04/24 01/04/24 History 27 mg iron-folic acid 800 mcg tablet ( Vitamin) valacyclovir 500 mg tablet 1,000 mg PO DAILY PRN HSV 01/04/24 01/04/24 History (Valtrex) Patient History Medical History Anxiety and depression hx Gestational diabetes mellitus (GDM) Cardiac murmur hx as child Pelvic pain Labial cyst Palpitations HSV (herpes simplex virus) anogenital infection Gestational hypertension Herpes genitalia last outbreak at approximately 14 weeks H/O varicella History of miscarriage - 09/2018 Surgical History Postoperative nausea H/O breast biopsy 10/2022, "benign" S/P section 09/2019, [facility] S/P wisdom tooth extraction S/P anterior cruciate ligament surgery Left Family History Mother Ovarian cyst Breast cancer Endometriosis PONV (postoperative nausea and vomiting) Aunt Breast cancer Thyroid disease Grandmother (Maternal) labor Breast cancer Grandfather (Maternal) Diabetes Social History Smoking Status: Never smoker Second Hand Exposure: No; Do You Dip or Chew Tobacco: No; Hx Alcohol Use: No Hx Substance Use: No Preferred Language: Irish Communication Ability: Effective Visual Impairment: No Limitations Hearing Ability: Normal Consultant Internship Required: No Beliefs That Will Affect Care: Anglican Anglican Beliefs: no immunizations, eye medications, circumcisions for christianity reasons (for baby) marital status: marital status details: Robert Estevez (32) [phone] Current Living Situation: Family Current Living Situation Comment: lives with spouse, 2 children current occupational status: unemployed current occupation: works at home for [employer]. Other Information That Helps Us Care for You: No Feels Safe at Home: Yes Safety Concerns: Feels Safe At This Time Assistive Devices: Contacts and Glasses Physical Exam Genitourinary: OB Exam Abdomen: + vertex Manual OB Exam: + cervical dilation 3 cm OB Exam Monitor Tracing: + external FHT monitor used, + external uterine monitor used and + category I No distinct HSV lesions noted Results & Data Vital Signs (Past 12 Hours) Vital Signs Pulse BP 01/04/24 08:01 73 128/74 Coding Level of Care Code None Diagnoses Gestational diabetes mellitus (GDM) affecting , antepartum O24.419 Encounter for supervision of normal in multigravida Z34.80 History of delivery, currently O34.219
[2024-01-04] MEDS ORDERED: NALOXONE HCL 0.4 MG/1 ML VIAL/CARP IV PRN (15:25)
[2024-01-04] MEDS ORDERED: ONDANSETRON INJ 2 MG/ML 2 ML VIAL IV PRN (15:25)
[2024-01-04] MEDS ORDERED: NALBUPHINE HCL 5 MG in SYRINGE 0 ML IV PRN (15:25)
[2024-01-04] MEDS ORDERED: ePHEDrine sulfate 50 MG/ML AMP IV PRN (15:25)
[2024-01-04] MEDS ORDERED: diphenhydrAMINE 50 MG/ML VIAL IV PRN (15:25)
[2024-01-04] MEDS ORDERED: MEPERIDINE HCL 25 MG/ML CARP/VIAL IV PRN (15:25)
[2024-01-04] MEDS ORDERED: LACTATED RINGER'S 500 ML IV PRN (15:25)
[2024-01-04] MEDS ORDERED: HYDROmorphone INJ 0.5 MG/0.5 ML SYR IV PRN (15:25)
[2024-01-04] MEDS ORDERED: NALOXONE HCL 1 MG in SODIUM CHLORIDE 0.9% 1,000 ML IV PRN (15:25)
[2024-01-04] MEDS ORDERED: NALOXONE HCL 0.08 MG in SYRINGE 1.8 ML IV PRN (15:25)
[2024-01-04] MEDS ORDERED: NO NARCOTICS OR SEDATIVES SCH (15:30)
[2024-01-04] MEDS ORDERED: SODIUM CHLORIDE 0.9% 1,000 ML IV SCH (15:30)
[2024-01-04] MEDS ORDERED: DC INTRASPINAL MORPHINE SCH (15:30)
--- NOTE | 2024-01-04 15:46 | Operative Report ---
PG Post Operative Report Pre & Post Diagnosis Operation Date: 01/04/24 14:30 Pre-Op Diagnosis: 1. Repeat 2. GDM - Diet Post-Op Diagnosis: 1. Repeat 2. GDM - Diet I identified the patient and participated in the time-out.: Yes Procedure Operation Date: 01/04/24 14:30 Actual Procedures p Section in LD - Bret Yin MD Surgeon Bret Yin MD Sports Book Writer Dr Montiel Estimated Blood Loss 600 Findings Consistent with Post-Op Diagnosis Specimens Placenta for hold Description of Procedure Patient was taken to the operating room and was proper identified. She was prepped and draped in in the normal sterile fashion with a Betadine splash. A preprocedural timeout was performed. A Pfannenstiel incision was made with a knife. This was carried down to the underlying fascia with the knife. The fascia was entered with a knife and bluntly dissected midline was then entered and placed on stretch to provide adequate room for delivery. Bladder blade was inserted and low transverse uterine incision was made with a knife. Uterine cavity was then entered bluntly and placed on stretch to provide adequate room for delivery. Head of the was delivered without difficulty followed by body and shoulders. Cord was double clamped and cut taken of the waiting nursery staff for evaluation. Cord blood and cord segment obtained. Attention was then turned delivery the placenta was delivered intact three- vessel cord gentle cord traction. Uterus was then exteriorized and several passes were made to remove any remaining membranes with a dry lap. Uterus was wrapped in a wet lap and the hysterotomy was reapproximated with 0 Vicryl continuous running lock stitch. Second imbricating of 0 Vicryl and continuous running stitch was performed. Excellent hemostasis noted. Posterior cul-de-sac cleaned of clots and debris's. Uterus returned maternal abdomen. Right left paracolic gutters cleaned of clots and debris's. Hysterotomy we inspected and noted to be hemostatic. Fascia subcutaneous and muscle layers were inspected noted to be hemostatic. Fascia was reapproximated with 0 Vicryl and continuous running stitch. Subcutaneous layer was reapproximated with 2-0 plain with continuous running stitch. Skin was reapproximated with 3-0 Vicryl continuous subcuticular stitch. Needle sponge and instrument counts were correct at the completion of the case. Both mother and stable in the immediate postdelivery period. I attest to the content of the Intraoperative Record and any orders documented therein. Any exceptions are noted below.
[2024-01-04] MEDS ORDERED: BENZOCAINE 20% SPRY 85 APPLN/85 GM CAN EXT PRN (15:54)
[2024-01-04] MEDS ORDERED: HYDROCORTISONE ACETATE 25 MG SUPP PR PRN (15:54)
[2024-01-04] MEDS ORDERED: SENNA 8.6 MG TAB PO PRN (15:54)
[2024-01-04] MEDS ORDERED: MAGNESIUM HYDROXIDE SUSP 30 ML UDC PO PRN (15:54)
--- NOTE | 2024-01-04 16:01 | Anesthesiology Progress Note ---
Date of Service January 04, 2024 Anesthesia Post Procedure Vital Signs Vital Signs: Temp Pulse Resp BP Pulse Ox 01/04/24 15:59 82 100 01/04/24 15:54 85 99 01/04/24 15:53 85 146/74 H 01/04/24 12:51 36.8 C 18 01/04/24 12:50 69 133/82 01/04/24 08:01 73 128/74 01/04/24 07:57 36.6 C 18 Transfer of Care Handoff Completed per policy Notes Mental Status: alert / awake / arousable Patient Amnestic to Procedure: Yes Nausea / Vomiting: adequately controlled Pain: adequately controlled Airway Patency, RR, SpO2: stable & adequate BP & HR: stable & adequate Hydration State: stable & adequate Neuraxial Anesthesia: was administered and sensory block is resolving Anesthetic Complications: no major complications apparent and Pt Satisfied with anesthetic care
[2024-01-04] MEDS: CITRIC ACID/SODIUM CITRATE 15 ML UDC PO SCH (18:12)
[2024-01-04] MEDS: SIMETHICONE 80 MG CHEW PO SCH (18:21)
[2024-01-04] MEDS: OXYTOCIN 20 UNITS/LR 1,002 ML IV SCH (18:38)
[2024-01-04] MEDS: KETOROLAC 30 MG/ML VIAL IV PRN (19:27)
[2024-01-04] MEDS: DOCUSATE SODIUM 100 MG CAP PO SCH (19:32)
[2024-01-05] MEDS ORDERED: CITRIC ACID/SODIUM CITRATE 15 ML UDC PO SCH (06:00)
[2024-01-05] MEDS ORDERED: ceFAZolin 2000MG 2,000 MG/15 ML SYR IV SCH (06:00)
[2024-01-05 06:31] LABS: Basophils # (auto) 0.03 K/uL (0.00-0.20); Basophils % (auto) 0.2 %; Eosinophils # (auto) 0.01 K/uL (0.00-0.50); Eosinophils % (auto) 0.1 %; Hematocrit (blood only) 29.7 % (37.0-47.0); Hemoglobin 9.9 g/dl (12.0-16.0); Immature Granulocytes # (auto) 0.16 K/uL (0.01-0.20); Immature Granulocytes % (auto) 1.2 %; Lymphocytes # (auto) 1.91 K/uL (1.20-3.40); Mean Corpuscular Hemoglobin 28.7 pg (25.0-34.0); Mean Corpuscular Hgb Conc 33.3 g/dL (32.0-36.0); Mean Corpuscular Volume 86.1 fL (80.0-100.0); Mean Platelet Volume 9.8 fL (9.4-12.4); Monocytes % (auto) 10.2 %; Neutrophils # (auto) 10.16 K/uL (1.40-6.50); Neutrophils % (auto) 74.3 %; Platelet Count 216 K/uL (130-400); RDW Coefficient of Variation 14.1 % (11.5-14.5); RDW Standard Deviation 44.1 fL (36.4-46.3); Red Blood Count 3.45 M/uL (4.20-5.40); White Blood Count 13.67 K/ul (4.8-10.8)
--- NOTE | 2024-01-05 08:05 | Obstetrical Progress Note ---
Date of Service <Sadaf Mendez MD - Last Filed: 01/05/24 08:05> January 05, 2024 Assessment & Plan <Sadaf Mendez MD - Last Filed: 01/05/24 08:05> (1) Encounter for assessment: Plan Patient with the above mentioned history and findings was evaluated at bedside and found awake, alert, oriented in all spheres, afebrile, and in no acute distress. Vital signs showed no fever and blood pressures remained stable. Her blood type is O positive and today's hemoglobin is adequate at 9.9 g/dL. Denies symptoms of anemia such as dizziness, lightheadedness, palpitations. Serologies are negative for GBS and she is rubella immune. Overall, patient is doing well clinically. Therefore, will encourage ambulation as tolerated Indwelling Dee will be removed. Continue routine pp course. All questions were answered. <Bret Yin MD - Last Filed: 01/07/24 16:41> (1) Encounter for assessment: Subjective <Sadaf Mendez MD - Last Filed: 01/05/24 08:05> Mariah is a 33 y/o female who is POD #1 following rLTCS at 40 5/7. She reports feeling well overall this morning. Refers moderate abdominal cramping & 4/10 pain well managed on analgesics. Voiding through dee catheter which is collecting clear urine free of blood or sediment. Tolerating meals overnight and has not yet ambulated. Has not yet passed gas or had a bm. Has some persistent lochia which she believes has some improvement this morning. Currently . Constitutional: no fever, no chills or no sweats Denies shortness of breath or difficulty breathing. Cardiovascular: no chest pain or no palpitations Breast: no breast pain Genitourinary (female): no dysuria Neurologic: no headache(s) Denies changes in vision. Physical Exam <Sadaf Mendez MD - Last Filed: 01/05/24 08:05> General: Alert. Oriented to person, time, and place. Afebrile. No acute distress. Eyes: pupils equal and reactive to light bilaterally, extraocular movements intact. Cardiac: Regular rate and rhythm, no murmurs/rubs/gallops. Respiratory: Clear to auscultation bilaterally a/p, no wheezes/rales/rhonchi. No increased work of breathing. Symmetrical chest rise. No respiratory distress. Abdomen: Soft, nontender, nondistended. Bowel sounds present. Low transverse surgical scar clean, without surrounding erythema or suppuration, and healing well. Uterus: Uterine fundus firm, mildly tender, and palpable at umbilicus. Lower Extremities: No lower extremity edema or swelling. No deep calf pain. Donald's negative bilaterally. Psych: Euthymic affect. Mood and affect congruence. Regular speech rate and content. Results & Data <Sadaf Mendez MD - Last Filed: 01/05/24 08:05> Vital Signs (Past 12 Hours) Vital Signs Temp Pulse Resp BP Pulse Ox O2 Del Method 01/05/24 06:41 16 96 01/05/24 05:00 17 96 01/05/24 04:00 16 96 01/05/24 03:00 16 95 01/05/24 03:00 36.7 C 60 16 102/62 95 Room Air 01/05/24 02:12 16 95 01/05/24 01:00 16 98 01/05/24 00:03 16 94 01/04/24 23:00 16 97 01/04/24 22:40 36.6 C 77 16 111/63 95 Room Air 01/04/24 22:00 16 96 01/04/24 21:00 16 97 01/04/24 20:18 16 96 Supervising Physician <Bret Yin MD - Last Filed: 01/07/24 16:41> Co-Signing Physician Notes Patient seen with resident and agree with the above findings and plan. Routine care
[2024-01-05] MEDS: FERROUS SULFATE 325 MG TAB PO SCH (08:37)
[2024-01-05] MEDS: PRENATAL VITAMIN 1 TAB PO SCH (08:37)
[2024-01-05] MEDS ORDERED: diphenhydrAMINE 50 MG/ML VIAL IV PRN (09:25)
[2024-01-05] MEDS ORDERED: MEPERIDINE HCL 50 MG/ML CARP IV PRN (09:25)
[2024-01-05] MEDS ORDERED: ONDANSETRON INJ 2 MG/ML 2 ML VIAL IV PRN (09:25)
[2024-01-05] MEDS ORDERED: KETOROLAC 30 MG/ML VIAL IV PRN (09:25)
[2024-01-05] MEDS ORDERED: PROMETHAZINE HCL 25 MG in SODIUM CHLORIDE 0.9% 50 ML IV PRN (09:25)
[2024-01-05] MEDS ORDERED: diphenhydrAMINE Capsule 25 MG CAP PO PRN (09:25)
[2024-01-05] MEDS: IBUPROFEN 600 MG TAB PO PRN (12:04)
[2024-01-05] MEDS: oxyCODONE/ACETAMINOPHEN 5mg/325mg TAB PO PRN (12:04)
[2024-01-05] MEDS: bisacodyL 5 MG TABEC PO SCH (20:25)
[2024-01-06 06:09] LABS: Hemoglobin 9.5 g/dl (12.0-16.0)
--- NOTE | 2024-01-06 07:10 | Obstetrical Progress Note ---
Date of Service <Sadaf Mendez MD - Last Filed: 01/06/24 07:10> January 06, 2024 Assessment & Plan <Sadaf Mendez MD - Last Filed: 01/06/24 07:10> (1) Encounter for assessment: Plan Patient with the above mentioned history and findings was evaluated at bedside and found awake, alert, oriented in all spheres, afebrile, and in no acute distress. Vital signs showed no fever and blood pressures remained stable. Her blood type is Rh pos and today's hemoglobin is adequate at 9.5 g/dL. Serologies are negative for GBS and patient is Rubella immune. Overall, patient is doing well clinically and meeting the desired milestone for her course. Therefore, will discharge patient today. Patient was counselled on discharge instructions. She is to make an appointment with her OB for 6 weeks after discharge for follow up evaluation. All questions were answered. <Araseli Francois DO - Last Filed: 01/06/24 07:41> (1) Encounter for assessment: Subjective <Sadaf Mendez MD - Last Filed: 01/06/24 07:10> Mariah is a 33 y/o female who is POD #2 following rLTCS at 40 5/7. She reports feeling well overall this morning. Refers moderate abdominal cramping & 4/10 pain well managed on analgesics. Voiding spontaneously. Tolerating meals overnight and ambulating without difficulty. Has passed gas but no bm yet. Has some persistent lochia which she believes has some improvement this morning. Currently . Constitutional: no fever, no chills or no sweats Denies shortness of breath or difficulty breathing. Cardiovascular: no chest pain or no palpitations Breast: no breast pain Genitourinary (female): no dysuria Neurologic: no headache(s) Denies changes in vision. Physical Exam <Sadaf Mendez MD - Last Filed: 01/06/24 07:10> General: Alert. Oriented to person, time, and place. Afebrile. No acute distress. Eyes: pupils equal and reactive to light bilaterally, extraocular movements intact. Cardiac: Regular rate and rhythm, no murmurs/rubs/gallops. Respiratory: Clear to auscultation bilaterally a/p, no wheezes/rales/rhonchi. No increased work of breathing. Symmetrical chest rise. No respiratory distress. Abdomen: Soft, nontender, nondistended. Bowel sounds present. Low transverse surgical scar clean, without surrounding erythema or suppuration, and healing well. Uterus: Uterine fundus firm, mildly tender, and palpable at umbilicus. Lower Extremities: No lower extremity edema or swelling. No deep calf pain. Donald's negative bilaterally. Psych: Euthymic affect. Mood and affect congruence. Regular speech rate and content. Results & Data <Sadaf Mendez MD - Last Filed: 01/06/24 07:10> Vital Signs (Past 12 Hours) Vital Signs Temp Pulse Resp BP Pulse Ox O2 Del Method 01/05/24 22:50 36.6 C 63 16 120/66 97 Room Air 01/05/24 20:20 36.6 C 74 16 112/72 96 Room Air Supervising Physician <Araseli Francois DO - Last Filed: 01/06/24 07:41> Co-Signing Physician Notes Resident Physician Supervision Note: I was present with Dr. Mendez during the history and exam. I discussed the case with the resident and agree with the findings and plan as documented in the note. Any exceptions or clarifications are listed here: POD#2 doing well. Incision CDI. Percocet #20 tabs sent to [facility] [address]. Discussed OTC stool softeners. Reviewed instructions, followup in office 6w. Documented By: Araseli Francois DO
[2024-01-06] MEDS: MoRPHine SULFATE PF 1 MG/ML 10 ML AMP/VIAL INT SPINAL ONE (07:29)
[2024-01-06] MEDS: DIPHTHER/TETAN/PERTUS Vaccine (Tdap, Adol/Adult) 0.5mL IM ONE (09:27)
[2024-01-06] MEDS ORDERED: bisacodyL 10 MG SUPP PR PRN (15:37)
== END 2024-01-06 12:25 | disposition home or self-care (01) | DRG 788 ==
LOC: 4S1 07:41 → EDSTATUS 09:30 → 4E2 19:05
DX: Z79.899 Other long term (current) drug therapy; O34.211 Maternal care for low transverse scar from previous cesarean delivery; Z3A.40 40 weeks gestation of pregnancy; Z37.0 Single live birth; O98.32 Other infections with a predominantly sexual mode of transmission complicating childbirth; O24.420 Gestational diabetes mellitus in childbirth, diet controlled